=== PATIENT | female | born 1940 | race Caucasian/White ===

== ENCOUNTER 2018-05-24 09:31 | Day surgery (SDC) | payer MEDICARE, OTHER ==
[2018-05-24] MEDS ORDERED: Xylocaine 1% Vial 30 ML PF IJ ONE (09:32)
[2018-05-24] MEDS ORDERED: Xylocaine-Mpf 2% 5 Ml Vial IJ ONE (09:32)
[2018-05-24] MEDS ORDERED: Depo-Medrol 40 MG/ML IM ONE (09:32)
--- NOTE | 2018-05-24 12:36 | XRAY ---
Indication: Bilateral L4-S1 MBB. Intraoperative fluoroscopy was provided for 17 seconds. Single digital spot image submitted for interpretation demonstrates posterior needle tips along the expected course of the left and right L4-S1 nerve roots. Correlate with intraoperative findings/report.
--- NOTE | 2018-05-24 12:38 | XRAY ---
17 seconds fluoroscopy time in surgery for bilateral L4-S1 MBB.
[2018-05-24] MEDS ORDERED: Lactated Ringers 1,000 ML IV ONE (17:10)
== END 2018-05-24 11:55 | disposition home or self-care (01) ==
LOC: SDC-PAIN 09:31
PROVIDERS: ATTEND Psychiatry & Neurology Pain Medicine
DX: M47.817 Spondylosis without myelopathy or radiculopathy, lumbosacral region (principal); Z79.899 Other long term (current) drug therapy; E78.5 Hyperlipidemia, unspecified; I25.10 Atherosclerotic heart disease of native coronary artery without angina pectoris
CPT/HCPCS: 64493; 64494; 72020; 77002; J1030; J2001

== ENCOUNTER 2018-06-07 13:27 | Day surgery (SDC) | payer MEDICARE, OTHER ==
[2018-06-07] MEDS ORDERED: Xylocaine 1% Vial 30 ML PF IJ ONE (13:28)
[2018-06-07] MEDS ORDERED: Marcaine 0.5% SDV 10 ML IJ ONE (13:28)
[2018-06-07] MEDS ORDERED: Depo-Medrol 40 MG/ML IM ONE (13:28)
--- NOTE | 2018-06-07 16:41 | XRAY ---
Indication: Bilateral L4-S1 MBB. Intraoperative fluoroscopy was provided for 25 seconds. Single digital spot image submitted for interpretation demonstrates posterior needle tips along the expected course of the left and right L4-S1 nerve roots. Correlate with intraoperative findings/report. Incidental heavy aortoiliac calcifications.
--- NOTE | 2018-06-07 16:47 | XRAY ---
25 seconds of fluoroscopy was used in surgery for bilateral L4-L5, L5-S1 MBB.
== END 2018-06-07 15:36 | disposition home or self-care (01) ==
LOC: SDC-PAIN 13:27
PROVIDERS: ATTEND Psychiatry & Neurology Pain Medicine
DX: M47.816 Spondylosis without myelopathy or radiculopathy, lumbar region (principal); I25.10 Atherosclerotic heart disease of native coronary artery without angina pectoris; E78.5 Hyperlipidemia, unspecified; Z79.899 Other long term (current) drug therapy
CPT/HCPCS: 64493; 64494; 72020; 77002; J1030; J2001

== ENCOUNTER 2018-06-28 13:37 | Day surgery (SDC) | payer MEDICARE, OTHER ==
[2018-06-28] MEDS ORDERED: Marcaine 0.5% SDV 10 ML IJ ONE (13:38)
[2018-06-28] MEDS ORDERED: Depo-Medrol 40 MG/ML IM ONE (13:38)
[2018-06-28] MEDS ORDERED: Xylocaine 1% Vial 30 ML PF IJ ONE (13:38)
--- NOTE | 2018-06-28 16:17 | XRAY ---
6 seconds of fluoroscopy was used in surgery for left SI joint injection.
--- NOTE | 2018-06-29 05:28 | XRAY ---
Indication: Left SI joint injection. Intraoperative fluoroscopy was provided for 6 seconds. 2 digital spot images submitted for interpretation demonstrate posterior needle tip in the projection at the inferior margin of the left sacroiliac joint. I believe there has been some minimal injection of contrast for needle tip placement. Correlate with intraoperative findings/report.
== END 2018-06-28 15:25 | disposition home or self-care (01) ==
LOC: SDC-PAIN 13:37
PROVIDERS: ATTEND Psychiatry & Neurology Pain Medicine
DX: M46.1 Sacroiliitis, not elsewhere classified (principal); M53.3 Sacrococcygeal disorders, not elsewhere classified; I25.10 Atherosclerotic heart disease of native coronary artery without angina pectoris; E78.5 Hyperlipidemia, unspecified
CPT/HCPCS: 72020; 77002; G0260; 27096; J1030; J2001

== ENCOUNTER 2018-07-19 14:49 | Day surgery (SDC) | payer MEDICARE, OTHER ==
[2018-07-19] MEDS ORDERED: Xylocaine 1% Vial 30 ML PF IJ ONE (14:50)
[2018-07-19] MEDS ORDERED: Marcaine 0.5% SDV 10 ML IJ ONE (14:50)
[2018-07-19] MEDS ORDERED: Depo-Medrol 40 MG/ML IM ONE (14:50)
--- NOTE | 2018-07-19 18:47 | XRAY ---
6 seconds fluoroscopy time in surgery for left SI joint injection.
--- NOTE | 2018-07-19 18:49 | XRAY ---
Indication: Left SI joint injection. Intraoperative fluoroscopy was provided for 6 seconds. 2 digital spot images submitted for interpretation demonstrates posterior needle tip projecting inferior left SI joint. Correlate with intraoperative findings/report.
== END 2018-07-19 17:20 | disposition home or self-care (01) ==
LOC: SDC-PAIN 14:49
PROVIDERS: ATTEND Psychiatry & Neurology Pain Medicine
DX: M46.1 Sacroiliitis, not elsewhere classified (principal); M53.3 Sacrococcygeal disorders, not elsewhere classified; I25.10 Atherosclerotic heart disease of native coronary artery without angina pectoris; F32.9 Major depressive disorder, single episode, unspecified; E78.5 Hyperlipidemia, unspecified; M19.90 Unspecified osteoarthritis, unspecified site
CPT/HCPCS: 72020; 77002; J1030; J2001